=== PATIENT | female | born 1985 | race African-American/Black ===

== ENCOUNTER 2017-02-25 15:29 | Emergency (ER) | payer OTHER, MEDICAID ==
[2017-02-25 15:35] VITALS: BP 118/66
[2017-02-25] MEDS ORDERED: HYDROCODONE/ACETAMINOPHEN 5-325 MG TABLET PO ONE (16:35)
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
== END 2017-02-25 18:45 | disposition home or self-care (01) ==
LOC: ER 15:29
DX: S16.1XXA Strain of muscle, fascia and tendon at neck level, initial encounter (principal); S80.02XA Contusion of left knee, initial encounter; S46.912A Strain of unspecified muscle, fascia and tendon at shoulder and upper arm level, left arm, initial encounter; R51 Headache; V43.52XA Car driver injured in collision with other type car in traffic accident, initial encounter
CPT/HCPCS: 70450; 71020; 72040; 99284